=== PATIENT | female | born 1935 | race Caucasian/White ===

== ENCOUNTER → 2016-04-25 14:02 | Outpatient (CLI) | payer MEDICARE, OTHER ==
[2016-04-27 09:20] LABS: IMMUNOGLOBULIN A 61 mg/dL (64-422); IMMUNOGLOBULIN E 26 IU/mL (0-100); IMMUNOGLOBULIN G 674 mg/dL (700-1600); IMMUNOGLOBULIN M 34 mg/dL (26-217)
== END | disposition home or self-care (01) ==
LOC: D.RT 04-05 09:00 → D.CT 04-05 15:00 → D.RT 04-12 14:00 → D.CT 04-12 15:00 → D.LAB 04-12 15:30 → D.RT 04-14 13:00 → D.LAB 04-14 14:00 → D.CT 04-14 14:30 → D.RT 04-17 08:00 → D.LAB 04-17 08:45 → D.RT 14:00
PROVIDERS: Internal Medicine Pulmonary Disease
DX: J44.9 Chronic obstructive pulmonary disease, unspecified (principal); J18.9 Pneumonia, unspecified organism

== ENCOUNTER → 2016-09-11 09:00 | Outpatient (CLI) | payer MEDICARE, OTHER | END | disposition home or self-care (01) | LOC: D.CT 09:00 | DX: R91.8 Other nonspecific abnormal finding of lung field (principal) ==

== ENCOUNTER → 2017-04-23 09:18 | Outpatient (CLI) | payer MEDICARE | END | disposition home or self-care (01) | LOC: D.CT 09:18 | DX: R91.8 Other nonspecific abnormal finding of lung field (principal) ==

== ENCOUNTER → 2018-07-11 09:14 | Outpatient (CLI) | payer MEDICARE, OTHER | END | disposition home or self-care (01) | LOC: D.CT 09:14 | PROVIDERS: ATTEND Internal Medicine Pulmonary Disease | DX: R91.8 Other nonspecific abnormal finding of lung field (principal) ==